=== PATIENT | female | born 1970 | race Caucasian/White ===

== ENCOUNTER 2024-07-04 23:50 | Emergency (ER) | payer OTHER ==
[~2024-07-04] VITALS: Ht 167.6 cm; Wt 70.0 kg
[2024-07-05 00:02] VITALS: O2SAT 99
[2024-07-05 00:54] LABS: BASOPHILS % 0.6 % (0.0-2.0); EOSINOPHILS % 0.5 % (0.0-5.0); HEMATOCRIT. 39.1 % (36.0-48.0); HEMOGLOBIN. 13.1 g/dL (12.0-16.0); LYMPHOCYTES % 26.2 % (20.0-50.0); MEAN CORPUSCULAR HGB CONC 33.5 g/dL (31.0-37.0); MEAN CORPUSCULAR VOLUME 86.6 fL (81.0-99.0); MONOCYTES % 5.7 % (2.0-8.0); PLATELET 209 x1000/uL (130-400); RED BLOOD CELL COUNT 4.51 mill/uL (4.2-5.4); RED CELL DISTRIBUTION WIDTH 13.3 % (11.6-14.6); WHITE BLOOD COUNT 8.6 x1000/uL (4.5-11.0)
[2024-07-05 01:03] LABS: CARBON DIOXIDE 23 mEq/L (21-32); CHLORIDE 105 mEq/L (98-107); POTASSIUM 3.9 mEq/L (3.5-5.1); SODIUM 139 mEq/L (136-145)
[2024-07-05 01:04] LABS: CALCIUM 10.2 mg/dL (8.7-10.4)
[2024-07-05 01:09] LABS: GLUCOSE 171 mg/dL (70-105); UREA NITROGEN BLOOD 15 mg/dL (9-23)
[2024-07-05 01:11] LABS: ACETAMINOPHEN < 2 ug/mL (10-30)
[2024-07-05] MEDS: ONDANSETRON HCL 4MG/2ML INJ IV ONE (01:14)
[2024-07-05 01:18] LABS: ETHANOL BLOOD < 10 mg/dL (<10)
[2024-07-05] MEDS: SODIUM CHLORIDE 0.9% 1,000 ML IV ONE (03:28)
[2024-07-05] MEDS ORDERED: ONDA4TAB50 MT (03:49)
[2024-07-05 04:15] VITALS: BP 120/72; PULSE 78; RESP 16; TEMP 36.44736; O2SAT 100
== END 2024-07-05 04:24 | disposition home or self-care (01) ==
LOC: ER 23:50
DX: T40.711A Poisoning by cannabis, accidental (unintentional), initial encounter (principal); R11.2 Nausea with vomiting, unspecified; Y92.89 Other specified places as the place of occurrence of the external cause
CPT/HCPCS: 36415; 93005; 99284; 80048; 80307; 80329; 80320; 85025; 96361; 96374; J2405; J7030; Z7610; G0480